=== PATIENT | female | born 1990 | race Caucasian/White ===

== ENCOUNTER 2017-09-07 09:59 | Emergency (ER) | payer MEDICAID ==
[~2017-09-07] VITALS: Ht 160 cm; Wt 79.1 kg
[2017-09-07] MEDS ORDERED: IBUP-2070 PO (10:25)
[2017-09-07] MEDS ORDERED: IBUPROFEN 800 MG TABLET PO ONE (11:15)
[2017-09-07] MEDS ORDERED: SODIUM CHLORIDE 0.9% 1,000 ML IV ONE (11:15)
[2017-09-07] MEDS ORDERED: ONDANSETRON HCL 4 MG/2 ML VIAL IVP ONE (11:15)
[2017-09-07 13:59] VITALS: BP 107/74
== END 2017-09-07 14:10 | disposition home or self-care (01) ==
LOC: EMS 10:00
DX: H66.92 Otitis media, unspecified, left ear (principal); B34.9 Viral infection, unspecified; R11.2 Nausea with vomiting, unspecified; J02.9 Acute pharyngitis, unspecified
CPT/HCPCS: 81002; 81025; 96361; 96374; 99284; J2405; J7030

== ENCOUNTER 2018-04-06 18:53 | Emergency (ER) | payer MEDICAID ==
[~2018-04-06] VITALS: Ht 170.2 cm; Wt 77.3 kg
[~2018-04-06 18:53] MED LIST: IBUP-2070 PO
[2018-04-06 20:37] VITALS: BP 120/74
[2018-04-06] MEDS ORDERED: IBUPROFEN 400 MG TABLET PO ONE (20:45)
== END 2018-04-06 21:00 | disposition home or self-care (01) ==
LOC: EMS 18:54
DX: J11.1 Influenza due to unidentified influenza virus with other respiratory manifestations (principal)

== ENCOUNTER 2021-08-20 17:47 | Emergency (ER) | payer MEDICAID ==
[~2021-08-20] VITALS: Ht 152.4 cm; Wt 84.1 kg
[2021-08-20 17:55] VITALS: BP 121/76
[2021-08-20] MEDS ORDERED: IBUPROFEN 600 MG TABLET PO ONE (19:45)
[2021-08-20 19:57] LABS: COVID AG,FIA SOURCE NASOPHARYNGEAL
[2021-08-20 20:21] LABS: RAPID GROUP A STREP NEGATIVE (NEGATIVE)
[2021-08-20 20:28] LABS: INFLUENZA TYPE A NEGATIVE FOR TYPE A (NEGATIVE); INFLUENZA TYPE B NEGATIVE FOR TYPE B (NEGATIVE)
== END 2021-08-20 20:43 | disposition home or self-care (01) ==
LOC: EMS 17:51
DX: J02.8 Acute pharyngitis due to other specified organisms (principal); Z20.822 Contact with and (suspected) exposure to COVID-19
CPT/HCPCS: 87430; 87804; 99283

== ENCOUNTER 2021-08-31 14:18 | Emergency (ER) | payer MEDICAID ==
[~2021-08-31] VITALS: Ht 162.6 cm; Wt 84.1 kg
[2021-08-31] MEDS ORDERED: ACETAMINOPHEN 500 MG TABLET PO ONE (14:45)
[2021-08-31] MEDS ORDERED: KETOROLAC TROMETHAMINE 30 MG/ML VIAL IM ONE (14:45)
[2021-08-31] MEDS ORDERED: LIDOCAINE 5% TRANSDERMAL PATCH TD ONE (14:45)
[2021-08-31] MEDS ORDERED: IBUP-2070 PO (14:52)
[2021-08-31] MEDS ORDERED: LIDO700A15 TP (14:52)
[2021-08-31 14:55] VITALS: BP 120/73
== END 2021-08-31 15:26 | disposition home or self-care (01) ==
LOC: EMS 14:19
DX: M54.41 Lumbago with sciatica, right side (principal)
CPT/HCPCS: 96372; 99283; J1885

== ENCOUNTER 2023-03-27 12:04 | Emergency (ER) | payer MEDICAID, OTHER ==
[~2023-03-27] VITALS: Ht 167.6 cm; Wt 77.3 kg
[~2023-03-27 12:04] MED LIST changes: +IBUP-1492 PO; -IBUP-2070 PO; +LIDO700A15 TP
[2023-03-27 12:11] VITALS: TEMP 98.6
[2023-03-27] MEDS ORDERED: SODIUM CHLORIDE 0.9% 1,000 ML IV ONE (13:00)
[2023-03-27] MEDS ORDERED: ONDANSETRON HCL 4 MG/2 ML VIAL IVP ONE (13:00)
[2023-03-27 13:01] LABS: COVID AG,FIA SOURCE NASAL SWAB
[2023-03-27 13:26] LABS: INFLUENZA TYPE A NEGATIVE FOR TYPE A (NEGATIVE); INFLUENZA TYPE B NEGATIVE FOR TYPE B (NEGATIVE)
[2023-03-27 13:27] LABS: BASOPHILS % (AUTO) 0.5 % (0.0-2.0); EOSINOPHILS % (AUTO) 1.3 % (1.0-6.0); HEMATOCRIT 36.9 % (36-46); HEMOGLOBIN 12.3 g/dL (12.0-16.0); LYMPHOCYTES # (AUTO) 2.3 K/uL (1.0-4.8); LYMPHOCYTES % (AUTO) 18.3 % (22.0-44.0); MEAN CORPUSCULAR HEMOGLOBIN 30.6 pg (26.0-34.0); MEAN CORPUSCULAR HGB CONC 33.4 G/dL (31.0-37.0); MEAN CORPUSCULAR VOLUME 92 fL (80-100); MONOCYTES # (AUTO) 1.2 K/uL (0.1-1.0); MONOCYTES % (AUTO) 9.5 % (2.0-9.0); NEUTROPHILS # (AUTO) 8.7 K/uL (1.8-7.7); NEUTROPHILS % (AUTO) 70.4 % (40.0-70.0); PLATELET COUNT (AUTO) 334 K/uL (150-450); RED BLOOD CELL COUNT(AUTO) 4.03 MIL/uL (4.00-5.20); RED CELL DISTRIBUTION WIDTH 12.1 % (11.5-14.5); WHITE BLOOD COUNT (AUTO) 12.3 K/uL (4.5-11.0)
[2023-03-27 13:28] LABS: SARS-COV2 (COVID) ANTIGEN,FIA Negative (Negative)
[2023-03-27 13:37] LABS: ANION GAP 9 mmol/L (8-16); CALCIUM, TOTAL 9.2 mg/dL (8.8-10.5); CARBON DIOXIDE 26 mmol/L (22-29); CHLORIDE 99 mmol/L (98-107); GLOMERULAR FILTR. RATE CALC > 60 mL/min (>60); GLUCOSE,RANDOM 141 mg/dL (70-110); POTASSIUM 3.5 mmol/L (3.5-5.1); SODIUM SERUM 134 mmol/L (136-145); UREA NITROGEN, BLOOD 8 mg/dL (7-18)
[2023-03-27 13:44] LABS: ALANINE AMINOTRANSFERASE 40 U/L (12-78); ALBUMIN 3.6 g/dL (3.4-5.0); ALKALINE PHOSPHATASE 88 U/L (46-116); ASPARTATE AMINOTRANSFERASE 30 U/L (15-37); BILIRUBIN,TOTAL 0.4 mg/dL (0.1-1.0); TOTAL PROTEIN, SERUM 7.8 g/dL (6.4-8.2)
[2023-03-27] MEDS ORDERED: ACETAMINOPHEN 650 MG/ISO-OSM 65 ML IV ONE (15:00)
[2023-03-27] MEDS ORDERED: AMOX250C4 PO (16:41)
[2023-03-27 17:00] VITALS: BP 122/75; PULSE 85; RESP 14
== END 2023-03-27 17:17 | disposition home or self-care (01) ==
LOC: EMS 12:05
DX: R51.9 Headache, unspecified (principal); J32.9 Chronic sinusitis, unspecified; Z20.822 Contact with and (suspected) exposure to COVID-19
CPT/HCPCS: 99284; 96365; 96361; 96375; 87426; 80053; 84703; 85025; 87804; 36415; J2405; J7030; J0131

== ENCOUNTER 2023-11-30 14:16 | Emergency (ER) | payer OTHER ==
[~2023-11-30] VITALS: Ht 160 cm; Wt 79.5 kg
[~2023-11-30 14:16] MED LIST changes: +AMOX250C4 PO; -IBUP-1492 PO; -LIDO700A15 TP
[2023-11-30 14:31] VITALS: BP 114/76; PULSE 63; RESP 20; TEMP 98.9; O2SAT 98
[2023-11-30] MEDS: DEXAMETHASONE 4 MG TABLET PO ONE (15:53)
[2023-11-30] MEDS: ACETAMINOPHEN 325 MG TABLET PO ONE (15:53)
[2023-11-30] MEDS: AMOX TR/POT CLAV 875 MG/125 MG TABLET PO ONE (15:53)
[2023-11-30] MEDS: IBUPROFEN 600 MG TABLET PO ONE (15:53)
[2023-11-30] MEDS ORDERED: AMOX-457 PO (16:02)
[2023-11-30] MEDS ORDERED: CETI-450 PO (16:02)
[2023-11-30] MEDS: CETIRIZINE HCL 10 MG TABLET PO ONE (16:15)
[2023-11-30] MEDS ORDERED: MORP15TA70 PO (16:30)
== END 2023-11-30 16:42 | disposition home or self-care (01) ==
LOC: EMS 14:16
DX: H66.91 Otitis media, unspecified, right ear (principal); J03.90 Acute tonsillitis, unspecified
CPT/HCPCS: 99284; J8540; Z7502; Z7610